=== PATIENT | female | born 1990 | race Caucasian/White ===

== ENCOUNTER 2020-01-09 10:11 | Emergency (ER) | payer SELFPAY ==
[2020-01-09] MEDS ORDERED: ACETAMINOPHEN 325 MG TAB PO ONE (10:42)
[2020-01-09] MEDS ORDERED: IBUPROFEN 600 MG TABLET PO ONE (10:42)
--- NOTE | 2020-01-09 10:48 | Emergency Department Record ---
History of Present Illness - General Chief complaint: Flu Like Symptoms Stated complaint: FLU SYMPTOMS Time Seen by Provider: 01/09/20 10:38 Source: Patient Mode of Arrival: Ambulatory Limitations: No limitations - History of Present Illness Initial comments: The patient is here due to a 3 day hx of cough, fever, and body aches. She lives with someone recently diagnosed with Flu A. She did not get a flu shot this year. MD Complaint: Generalized weakness Onset/Timin -: Days(s) Associated Symptoms: Fever/chills, Nausea/vomiting, Other - Katerin Coma Scale Eye Response: (4) Open spontaneously Motor Response: (6) Obeys commands Verbal Response: (5) Oriented Stanton Total: 15 - Related Data Home Medications Medication Instructions Recorded Confirmed Last Taken No Home Med [NO HOME MEDS] 01/09/20 01/09/20 Unknown Allergies Allergy/AdvReac Type Severity Reaction Status Date / Time No Known Drug Allergies Allergy Verified 01/09/20 10:37 Travel/Exposure Screening - Travel/Exposure Within Last 30 Days Have you traveled within the last 30 days?: No - Travel/Exposure Within Last Year Have you traveled outside the [place] in the last year?: No - Additonal Travel/Exposure Details Have you been exposed to anyone with a communicable illness?: No - Travel Symptoms Symptom Screening: Fever (GT 100.4) Review of Systems Constitutional: Reports: Chills, Fever, Malaise Eyes: Denies: Eye discharge ENT: Reports: Congestion Respiratory: Reports: Cough. Denies: Dyspnea Past Medical History - SOCIAL HISTORY Smoking Status: Current every day smoker Drug Use: Heavy Drug Use Detail:: Marijuana - RESPIRATORY Hx Respiratory Disorders: Yes Hx Bronchitis: Yes - CARDIOVASCULAR Hx Cardio Disorders: No - NEURO Hx Neuro Disorders: Yes Hx Headaches: Yes - GI Hx GI Disorders: No - Hx Genitourinary Disorders: No - ENDOCRINE Hx Endocrine Disorders: No - MUSCULOSKELETAL Hx Musculoskeletal Disorders: No - PSYCH Hx Psych Problems: Yes Hx Depression: Yes Comment:: ptsd - HEMATOLOGY/ONCOLOGY Hx Hematology/Oncology Disorders: No Family Medical History Any Significant Family History?: No Physical Exam - General General Appearance: Alert, Oriented x3, Cooperative, No acute distress - Head Head exam: Atraumatic, Normocephalic, Normal inspection - Eye Eye exam: Normal appearance, PERRL - ENT Throat exam: Normal inspection. negative: Tonsillar erythema, Tonsillar exudate - Neck Neck exam: Normal inspection, Full ROM. negative: Tenderness - Respiratory Respiratory exam: Normal lung sounds bilaterally. negative: Respiratory distress - Cardiovascular Cardiovascular Exam: Regular rate, Normal rhythm, Normal heart sounds - GI/Abdominal GI/Abdominal exam: Soft, Normal bowel sounds. negative: Tenderness - Extremities Extremities exam: Normal inspection, Full ROM, Normal capillary refill. negative: Tenderness - Neurological Neurological exam: Alert, Normal gait. negative: Abnormal gait, Motor sensory deficit Course Vital Signs 01/09/20 10:25 Temperature 101.1 F H Pulse Rate 123 H Respiratory 18 Rate Blood Pressure 133/96 Pulse Ox 97 - Reevaluation(s) Reevaluation #1: The patient is feeling better. She has no SOB and her lungs are clear. I did discuss the positive flu test with the patient and the need for recheck with her PCP next week. She is to return to the ER for any worsening issues. 01/09/20 11:47 Medical Decision Making - Data Complexity MDM Data: Labs Ordered and/or Reviewed (Flu test Pos.) Disposition Disposition: Discharge Clinical Impression: Influenza Disposition: Home, Self-Care Condition: (2) Stable Instructions: Influenza (ED) Additional Instructions: Please use Tylenol and Motrin for fever and please see your doctor next week if not better. Return to the ER for any worsening symptoms, pain, high fever or any SOB. Forms: Patient Portal Access Time of Disposition: 11:49 Quality - Quality Measures Quality Measures: N/A - Blood Pressure Screening View Details: Yes Does Patient Have Any of the Following: No Blood Pressure Classification: Hypertensive Reading Systolic Measurement: 133 Diastolic Measurement: 96 Screening for High Blood Pressure: < First Hypertensive BP, F/U Documented > [[id number]] First Hypertensive Follow-up Interventions: Referral to alternative/primary care provider.
[2020-01-09 11:19] LABS: INFLUENZA A NEGATIVE (NEGATIVE); INFLUENZA B POSITIVE (NEGATIVE)
== END 2020-01-09 11:54 | disposition home or self-care (01) ==
LOC: ER 10:11
DX: J10.1 Influenza due to other identified influenza virus with other respiratory manifestations (principal); R53.1 Weakness
CPT/HCPCS: 87400; 99283